=== PATIENT | male | born 1975 | race American Indian/Alaskan Native ===

== ENCOUNTER 2018-02-23 01:52 | Emergency (ER) | payer OTHER ==
[~2018-02-23] VITALS: Ht 188 cm; Wt 103.9 kg
[2018-02-23] MEDS ORDERED: LISITAB PO (02:12)
== END 2018-02-23 03:18 | disposition home or self-care (01) ==
LOC: ED 01:52
DX: T63.441A Toxic effect of venom of bees, accidental (unintentional), initial encounter (principal); T50.905A Adverse effect of unspecified drugs, medicaments and biological substances, initial encounter
CPT/HCPCS: 96372; 99284; J2930; J3410